=== PATIENT | male | born 1935 | race Caucasian/White ===

== ENCOUNTER 2017-01-11 08:47 | Emergency (ER) | payer MEDICARE, OTHER ==
[~2017-01-11 08:47] MED LIST: ALLO300T2 PO; CHOL100043 PO; CLOP75TA3 PO; DOCU-41 PO; FELO10TA3 PO; HYDR-3938 PO; HYDR25TA4 PO; INDO50CA PO; LAMO100T PO; LIP40 PO; LISI40TA PO; MELA1TAB10 PO; MEMA5TAB PO; METO200T32 PO; MULT1CAP33 PO; TERA2CAP4 PO; ZOLP5TAB6 PO
--- NOTE | 2017-01-11 08:52 | ED.REPORT ---
HPI-Chest Pain 40 and Over Date of Service Jan 11, 2017 ED Provider: Dr. Eldridge Pt is an 81 year old male with a hx of stroke, HTN, and Alzheimer's presenting to the ED via EMS complaining of intermittent 10/10 chest pain onset at 0200 this morning. He denies chest pain on arrival. Pt was woken up by left sided chest pain/ pressure/ tightness this morning. Denies SOB, nausea, vomiting, diaphoresis, LE swelling, chills, fever, or any other symptoms at this time. Denies previous similar symptoms or hx of heart problems. He has not taken any pain medication yet. Nursing Notes Stated Complaint: CHEST PAIN Chief Complaint: Chest Pain Nursing Notes Reviewed: Yes (Footmarks not reconciled) Allergies: Coded Allergies: No Known Allergies (Verified , 01/11/17) Uncoded Allergies: No Known Allergies (Allergy, Unknown, 01/27/05) Scheduled Allopurinol (Allopurinol) 300 Mg Tablet 300 MG PO DAILY Atorvastatin (Lipitor) 40 Mg Tablet 40 MG PO DAILY Cholecalciferol (Vitamin D3) (Vitamin D) 1,000 Unit Tablet 2,000 UNIT PO DAILY Clopidogrel Bisulfate (Plavix) 75 Mg Tablet 75 MG PO DAILY Docusate Sodium (Colace) 100 Mg Capsule Unknown Dose PO DAILY Felodipine ER (Felodipine ER) 10 Mg Tab.er.24h 10 MG PO HS Hydralazine (Hydralazine) 10 Mg Tablet 10 MG PO TID Hydrochlorothiazide (Hydrochlorothiazide) 25 Mg Tablet 25 MG PO DAILY Lamotrigine (Lamictal) 100 Mg Tablet 100 MG PO BID Lisinopril (Lisinopril) 40 Mg Tablet 80 MG PO DAILY Melatonin (Melatonin 1 mg Tablet) 1 Each Tablet 1 MG PO HS Memantine HCl (Namenda) 5 Mg Tablet 5 MG PO BID Metoprolol Succinate ER (Metoprolol Succinate ER) 200 Mg Tab.er.24h 200 MG PO DAILY Multivitamin (Multivitamins) 1 Each Capsule 1 EACH PO DAILY Terazosin (Terazosin) 2 Mg Capsule 2 MG PO BID Scheduled PRN Indomethacin (Indomethacin) 50 Mg Capsule 50 MG PO DIRECTED PRN PRN For Pain Zolpidem (Zolpidem) 5 Mg Tablet 2.5-5 MG PO HS PRN PRN For Insomnia General Time Seen by MD: 08:51 Chief Complaint Chest pain Hx Obtained From: Patient, EMS Arrived By: Ambulance Sudden in Onset?: Yes Onset Occurred: 5 - 8 hours ago Symptom Duration: Since onset Location: : Chest left Quality: Painful, Pressure Severity: Current: No pain currently Severity: Maximum: Pain level 10 out of 10 Recent Healthcare: No recent hospitalization, Recent doctor visit Similar Sx Previous: No Past Medical History Past Medical History Notes: Oncologist Dr. 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) Peripheral vascular disease with history of carotid endarterectomy Gout History of seizure disorder BPH Hyperlipidemia History of Alzheimer's History of CVA in 2013 History of anemia History of aortic valve stenosis History of renal insufficiency Hyperlipidemia History memory loss History of gait instability ho Intraparenchymal hemorrhage Reports: Hypertension Reports: Dementia Past Surgical History Initial EGD 07/18/2015 [place] [facility] [place] esophageal mass, initial biopsies positive for Jordan's EGD by NIRAV Metcalf 08/2015 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 Nice at [facility] successful 09/28/15 -> path + signet cell adenoCA Reports: Cholecystectomy Smoking History Former Smoker (quit in 1984) Social History resides at [place] Alcohol Use: "Social" Drug Use: Denies drug use Ambulatory Status Independent Review of Systems Constitutional: Denies: Chills, Fever Respiratory: Denies: Shortness of breath Cardiovascular: Reports: Chest pain GI: Denies: Nausea, Vomiting Musculoskeletal: Denies: Extremity swelling Skin: Denies Diaphoresis Complete sys rev & neg: except as marked. Physical Exam Initial Vital Signs Vital Signs (First) Date Time Temp Pulse Resp B/P Pulse Ox O2 Delivery O2 Flow Rate FiO2 01/11/17 08:59 36.6 66 16 157/59 01/11/17 13:18 96 Room Air Initial VS: Reviewed, Unavailable (none on chart) Head / Eyes: Atraumatic, Normocephalic, PERRL ENT: Mucous membranes moist, Conjunctiva normal, No scleral icterus Skin: Warm, Dry, No cyanosis Neurologic: Alert, Oriented, Nonfocal Psychiatric: Mood/affect normal, Behavior normal, Normal thought content General/Constitutional: Awake Memory loss, but is able to give me a history although I'm not sure how reliable it is Respiratory / Chest: Breath sounds NL, Breath sounds = bilat, No respiratory distress, No rales, No rhonchi, No wheezing, No stridor, No chest tenderness Cardiovascular: Heart rate NL, Regular rhythm, Heart sounds NL, No murmurs, Peripheral circulation NL, Pulses = bilaterally, No gross BP differential Abdomen: Soft, Non-tender, McBurney's non-tender, No guarding, No rebound, BS normoactive, No distention, No hernia, No palpable mass Lower Extremity / Pelvis / MS: Inspection NL, Full range of motion +1 pitting edema bilateral LE Interpretation & Diagnostics Lab Results Interpretation Result Diagram: 01/11/17 0910 01/11/17 0910 Test 01/11/17 09:10 01/11/17 12:20 White Blood Count 4.6th/mm3 (3.8-10.1) Red Blood Count 3.65mil/mm3 (4.40-5.80) Hemoglobin 12.0g/dL (13.8-17.2) Hematocrit 36.4% (41.0-50.0) Mean Corpuscular Volume 99.7fL (81-100) Mean Corpuscular Hemoglobin 32.9pg (27.0-35.0) Mean Corpuscular Hemoglobin Concent 33.0% (32.0-37.0) Red Cell Distribution Width 14.1% (12.3-15.4) Platelet Count 132bil/L (150-400) Neutrophils (%) (Auto) 69.0% (40-74) Lymphocytes (%) (Auto) 20.0% (14-46) Monocytes (%) (Auto) 7.4% (4-12) Eosinophils (%) (Auto) 3.0% (0-5) Basophils (%) (Auto) 0.2% (0-3) Sodium Level 139mEq/L (134-144) Potassium Level 4.7mEq/L (3.5-5.2) Chloride Level 101mEq/L (97-108) Carbon Dioxide Level 23mmol/L (18-29) Blood Urea Nitrogen 26mg/dL (8-27) Creatinine 1.54mg/dL (0.76-1.27) Estimat Glomerular Filtration Rate 46mL/min (>59) Glucose Level 115mg/dL (60-99) Calcium Level 9.4mg/dL (8.5-10.1) Magnesium Level 2.4mg/dL (1.6-2.6) Total Bilirubin 0.6mg/dL (0.0-1.2) Aspartate Amino Transf (AST/SGOT) 24U/L (0-50) Alanine Aminotransferase (ALT/SGPT) 19U/L (0-44) Alkaline Phosphatase 86U/L (25-160) Total Protein 7.6g/dL (6.4-8.4) Albumin 4.3g/dL (3.4-5.0) Troponin T < 0.010ug/L (0.0-0.011) Lab Results Interpretation: CBC normal CMP mild renal insufficiency Troponins 2 negative ECG Interpretation ECG Interpretation: 1st degree block which is unchanged compared to previous. Time: 08:59 Interpreted by: ED physician Normal ECG Interpretation: Normal rate (64), Normal sinus rhythm X-Ray Chest Interpretation Chest Xray Interpretation: IMPRESSION: Portable chest within normal limits. Dictated by: Iglesia Torres M.D. on 01/11/2017 at 9:10 View: Portable, 1 view Interpretation / Wet Read by: Interpret - Radiologist Re-Eval/Medical Decision Med Decision/Clinical Course This is an 81-year-old male moderate dementia and memory problems who presents with some sort of chest discomfort that started last evening around 2 AM. He was sent in for further evaluation. He has a known history of peripheral artery disease with carotid stenosis on Plavix plus Plendil, but are not aware of a milton history of known coronary artery disease. Several other risk factors. He appears well, in no visible extremity discomfort clinically. He has no overt findings of heart failure. His exam is, located by his poor memory. An EKG reveals no acute ischemic changes. Chest x-ray is negative. Blood work was normal including 2 sets of troponins. Illness age, risk factors, and initial that he presented by himself-I recommended that possibly admitting the patient for serial enzymes. The family arrived, there was a long discussion with the family indicating there were 2 sets of troponins were to get into the mid 90 percentile of excluding coronary disease, and the patient does not wish to stay in the hospital family agrees and are happy to stick with that that 2 troponin evaluation. This was done and was negative. I also discussed this with the primary care physician Dr. Escalona, who is also in agreement. The patient's asymptomatic on arrival reevaluation, initial labs are not demonstrating markers of a clear, dangerous etiologies such as a Tariq syndrome or IL. Patient is being discharged, routine precautions reviewed. Source of Hx: Old records Time of Eval: 09:49 Patient Status: Condition improved Re-Evaluation/Progress Note: Pt sleeping comfortably. Time of Eval: 11:46 Patient Status: Condition improved Re-Evaluation/Progress Note: Spoke to the pt's family and will do a repeat Troponin instead of admission. Time of Eval: 13:15 Patient Status: Condition improved Re-Evaluation/Progress Note: Discussed plan for discharge. Pt understands and agrees. Consultation : Referral / Consult Name: German Escalona MD Consulted With: Primary care physician Call Returned at: 13:12 Equipment Installation Professional: Agrees with plan Differential Diagnosis: Positive: Chest pain, acute, Negative: Acute coronary syndrome, Acute myocardial infarct, Esophageal rupture, Gun shot wound chest, Myocardial infarction, Pneumothorax, Pulmonary edema, Pulmonary embolism, Stab wound chest Counseled Regarding: Diagnosis, Lab results, Need for follow-up, When/why to return to ED Discharge & Departure Primary Impression: Chest pain Chest pain type: unspecified Qualified Code: R07.9 - Chest pain, unspecified Disposition: Home Discharge Condition All VS Reviewed: Yes Condition: Improved Additional Instructions: 1. A dangerous cause of the chest discomfort was not identified. 2. Initial EKG did not reveal any markers of a heart attack further dangerous cause-and 2 sets of troponins (blood markers of a heart attack) were both negative. As discussed, means it is improbable that the symptoms were from a heart attack. A dangerous cause was not identified. 3. Continue current care. 4. Return if new or worsening symptoms occur. Referrals: German Escalona MD (PCP) Scribe Attestation Portions of this note were transcribed by Carol Ann Varela. I, Dr. Eldridge personally performed the history, physical exam and medical decision-making; I reviewed and confirmed the accuracy of the information in the transcribed note. Signed by: Sean Morin, 01/11/2017 at 1313. copies to: German Escalona MD, Matthew F MD Jan 11, 2017 08:52 CAROL ANN VARELA Jan 11, 2017 09:08
[2017-01-11 08:59] VITALS: BP 157/59; PULSE 66; RESP 16
[2017-01-11 09:42] LABS: BASOPHILS % (AUTO) 0.2 % (0-3); MONOCYTES % (AUTO) 7.4 % (4-12); Mean Corpuscular Hemoglobin 32.9 pg (27.0-35.0); Mean Corpuscular Volume 99.7 fL (81-100); Platelet Count 132 bil/L (150-400)
--- NOTE | 2017-01-11 10:13 | DRSVH ---
PROCEDURE: X-RAY CHEST ONE VIEW, PORTABLE ([id number]) INDICATIONS: CP TECHNIQUE: One view of the chest was acquired. COMPARISON: [facility], CR, CHEST 2VW, 12/30/2012, 11:46. [facility], CR, CH EST 1VW (PORTABLE), 03/30/2014, 19:57. [facility], CR, XR CHEST 1VW (PORTABLE), 5, 19:02. FINDINGS: Surgical changes and devices: A right lower neck clips can be seen. Lungs and pleura: No pleural effusions or pneumothorax. Lungs are clear. Incidental note is made o f an azygos lobe. Mediastinum: Mediastinal contours appear normal. Heart size is normal. Bones and chest wall: No suspicious bony lesions. Overlying soft tissues appear unremarkable. IMPRESSION: Portable chest within normal limits. Dictated by: Iglesia Torres M.D. on 01/11/2017 at 9:10 Approved by: Iglesia Torres M.D. on 01/11/2017 at 9:11
[2017-01-11 10:27] LABS: TROPONIN T < 0.010 ug/L (0.0-0.011)
[2017-01-11 10:33] LABS: Magnesium 2.4 mg/dL (1.6-2.6)
[2017-01-11 13:18] VITALS: BP 155/78; PULSE 73; RESP 20; O2SAT 96
== END 2017-01-11 13:30 | disposition home or self-care (01) ==
LOC: SED 08:47 → EDUNIT# 08:47 → EDBD 08:47 → SED 13:30
DX: R07.9 Chest pain, unspecified (principal); I10 Essential (primary) hypertension; G30.9 Alzheimer's disease, unspecified; Z86.73 Personal history of transient ischemic attack (TIA), and cerebral infarction without residual deficits; E78.5 Hyperlipidemia, unspecified; F03.90 Unspecified dementia, unspecified severity, without behavioral disturbance, psychotic disturbance, mood disturbance, and anxiety; Z87.891 Personal history of nicotine dependence